=== PATIENT | female | born 1995 | race Caucasian/White ===

== ENCOUNTER 2017-06-06 08:58 | Outpatient (CLI) | payer OTHER | END 2017-06-06 09:15 | disposition home or self-care (01) | LOC: LAB 08:58 | DX: E64.9 Sequelae of unspecified nutritional deficiency (principal); E03.9 Hypothyroidism, unspecified; E16.2 Hypoglycemia, unspecified; N39.0 Urinary tract infection, site not specified; E78.2 Mixed hyperlipidemia; N91.1 Secondary amenorrhea; E55.9 Vitamin D deficiency, unspecified; E28.2 Polycystic ovarian syndrome; L68.8 Other hypertrichosis ==

== ENCOUNTER 2018-10-31 06:08 | Outpatient (CLI) | payer OTHER ==
[2018-11-04] MEDS ORDERED: ZITHROMAX TRI-500 MG PO (22:58)
[2018-11-04] MEDS ORDERED: KETO10TA2 PO (22:58)
== END 2018-10-31 06:19 | disposition home or self-care (01) ==
LOC: LAB 06:08
DX: Z11.3 Encounter for screening for infections with a predominantly sexual mode of transmission (principal)

== ENCOUNTER → 2018-11-04 | Emergency (ER) | payer OTHER ==
[~2018-11-04] VITALS: Ht 157.5 cm; Wt 104.3 kg
[~2018-11-04] MED LIST: KETO10TA2 PO; ZITHROMAX TRI-500 MG PO
== END | disposition home or self-care (01) ==
LOC: ER 18:59
DX: J06.9 Acute upper respiratory infection, unspecified (principal)

== ENCOUNTER 2019-06-01 08:43 | Inpatient (IN) | payer OTHER ==
[~2019-06-01] VITALS: Ht 30.5 cm; Wt 5.0 kg
[2019-06-02] MEDS ORDERED: PERCOCET 5-3251 EACH PO (15:31)
== END 2019-06-02 17:07 | disposition home or self-care (01) | DRG 343 ==
LOC: ER 08:43 → SURH 13:12
PROVIDERS: ADMIT Surgery
PROC: BW21ZZZ Computerized Tomography (CT Scan) of Abdomen and Pelvis (ICD-10-PCS; 2019-06-01)
PROC: BU4CZZZ Ultrasonography of Uterus and Ovaries (ICD-10-PCS; 2019-06-01)
PROC: 0DTJ4ZZ Resection of Appendix, Percutaneous Endoscopic Approach (ICD-10-PCS; principal; 2019-06-01 13:00)
DX: K35.890 Other acute appendicitis without perforation or gangrene (principal)

== ENCOUNTER → 2019-10-09 06:14 | Outpatient (CLI) | payer OTHER ==
[~2019-10-09 06:14] MED LIST changes: +PERCOCET 5-3251 EACH PO
== END | disposition home or self-care (01) ==
LOC: LAB 06:14
PROVIDERS: ATTEND Obstetrics & Gynecology
DX: E03.8 Other specified hypothyroidism (principal); I10 Essential (primary) hypertension; N30.00 Acute cystitis without hematuria; E11.9 Type 2 diabetes mellitus without complications; E28.2 Polycystic ovarian syndrome

== ENCOUNTER 2019-12-05 14:28 | Outpatient (CLI) | payer OTHER | END 2019-12-05 14:32 | disposition home or self-care (01) | LOC: LAB 14:28 | PROVIDERS: ATTEND Obstetrics & Gynecology | DX: Z32.02 Encounter for pregnancy test, result negative (principal) ==

== ENCOUNTER 2019-12-11 06:18 | Outpatient (CLI) | payer OTHER | END 2019-12-11 06:20 | disposition home or self-care (01) | LOC: LAB 06:18 | PROVIDERS: ATTEND Obstetrics & Gynecology | DX: N95.8 Other specified menopausal and perimenopausal disorders (principal); Z11.3 Encounter for screening for infections with a predominantly sexual mode of transmission ==

== ENCOUNTER 2020-04-22 13:42 | Outpatient (CLI) | payer OTHER | END 2020-04-22 13:44 | disposition home or self-care (01) | LOC: LAB 13:42 | PROVIDERS: ATTEND Obstetrics & Gynecology | DX: K73.8 Other chronic hepatitis, not elsewhere classified (principal); Z20.6 Contact with and (suspected) exposure to human immunodeficiency virus [HIV]; A60.00 Herpesviral infection of urogenital system, unspecified; R07.1 Chest pain on breathing; Z03.818 Encounter for observation for suspected exposure to other biological agents ruled out; A63.8 Other specified predominantly sexually transmitted diseases; D64.89 Other specified anemias ==

== ENCOUNTER 2022-04-24 07:36 | Emergency (ER) | payer OTHER ==
[~2022-04-24] VITALS: Ht 160 cm; Wt 81.6 kg
== END 2022-04-24 13:42 | disposition home or self-care (01) ==
LOC: ER 07:36
DX: O20.9 Hemorrhage in early pregnancy, unspecified (principal); Z3A.09 9 weeks gestation of pregnancy; Z91.040 Latex allergy status; Z91.041 Radiographic dye allergy status

== ENCOUNTER 2023-05-31 01:43 | Emergency (ER) | payer OTHER ==
[~2023-05-31] VITALS: Ht 154.9 cm; Wt 81.6 kg
[2023-05-31] MEDS ORDERED: PRENA1 TRUE CO1 EACH (01:49)
[2023-05-31] MEDS ORDERED: PROMETRIUM200 MG (01:49)
[2023-05-31 03:03] LABS: URINE APPEARANCE Cloudy; URINE BILIRRUBIN Negative (NEGATIVE); URINE BLOOD Large; URINE COLOR Orange; URINE GLUCOSE Negative (NEGATIVE); URINE LEUKOCYTE Trace; URINE NITRATE Negative; URINE PROTEIN 30 (NEGATIVE)
[2023-05-31 03:05] LABS: HEMATOCRIT 39.8 % (36.0-45.00); HEMOGLOBIN 13.2 g/dL (12.0-15.00); MEAN CELL VOLUME 86.8 fL (80.00-100.00); MEAN CORPUSCULAR HEMOGLOBIN 28.7 pg (27.00-32.0); MEAN CORPUSCULAR HGB CONC 33.1 g/dl (32.0-36.0); PLATELET COUNT 322 K/uL (150-450); RED BLOOD COUNT 4.59 M/uL (4.00-6.00); RED CELL DISTRIBUTION WIDTH 13.5 % (11.5-14.5)
[2023-05-31 03:07] LABS: URINE BACTERIA 614.8 uL (0.0-1933); URINE EPITHELIAL CELLS 23.4 uL (0.0-38.8); URINE WBC 6.9 uL (0.0-23.2)
[2023-05-31 03:30] LABS: INR 1.01; PARTIAL THROMBOPLASTIN TIME 29.6 SECONDS (22.0-34.0); PROTHROMBIN TIME 10.6 SECONDS (9.0-11.5)
[2023-05-31 03:49] LABS: CALCIUM 9.2 mg/dL (8.5-10.1); CREATININE SERUM 0.6 mg/dL (0.55-1.02); GFR 118.19; POTASSIUM 3.91 mEq/L (3.5-5.1)
== END 2023-05-31 06:50 ==
LOC: ER 01:43
PROVIDERS: General Practice
DX: O20.8 Other hemorrhage in early pregnancy (principal); Z3A.01 Less than 8 weeks gestation of pregnancy; Z88.1 Allergy status to other antibiotic agents; Z91.040 Latex allergy status; Z91.041 Radiographic dye allergy status

== ENCOUNTER 2023-09-04 14:08 | Outpatient (CLI) | payer OTHER ==
[~2023-09-04 14:08] MED LIST changes: +PRENA1 TRUE CO1 EACH; +PROMETRIUM200 MG
[2023-09-04] MEDS ORDERED: CLARITIN10 M1 PO (23:19)
[2023-09-04] MEDS ORDERED: COLACE100 MG PO (23:19)
== END 2023-09-04 14:09 | disposition home or self-care (01) ==
LOC: PRENATAL 14:08
PROVIDERS: ATTEND Obstetrics & Gynecology Maternal & Fetal Medicine
DX: O35.9XX0 Maternal care for (suspected) fetal abnormality and damage, unspecified, not applicable or unspecified (principal); O35.3XX0 Maternal care for (suspected) damage to fetus from viral disease in mother, not applicable or unspecified; O44.02 Complete placenta previa NOS or without hemorrhage, second trimester; O26.872 Cervical shortening, second trimester; Z3A.20 20 weeks gestation of pregnancy

== ENCOUNTER 2023-09-04 18:05 | Inpatient (IN) | payer OTHER ==
[~2023-09-04] VITALS: Ht 154.9 cm; Wt 89.8 kg
[2023-09-04 18:46] LABS: URINE APPEARANCE Clear; URINE BILIRRUBIN Negative (NEGATIVE); URINE BLOOD Negative; URINE COLOR Yellow; URINE GLUCOSE Negative (NEGATIVE); URINE LEUKOCYTE Negative; URINE NITRATE Negative; URINE PROTEIN Negative (NEGATIVE); URINE UROBILINOGEN 0.2 E.U./dl
[2023-09-04 18:47] LABS: HEMATOCRIT 35.2 % (36.0-45.00); HEMOGLOBIN 11.9 g/dL (12.0-15.00); MEAN CELL VOLUME 84.6 fL (80.00-100.00); MEAN CORPUSCULAR HEMOGLOBIN 28.6 pg (27.00-32.0); MEAN CORPUSCULAR HGB CONC 33.8 g/dl (32.0-36.0); PLATELET COUNT 306 K/uL (150-450); RED BLOOD COUNT 4.15 M/uL (4.00-6.00); RED CELL DISTRIBUTION WIDTH 13.4 % (11.5-14.5); URINE BACTERIA 11.3 uL (0.0-1933); URINE EPITHELIAL CELLS 6.9 uL (0.0-38.8); URINE RBC 11.9 uL (0.0-20.8); URINE WBC 6.1 uL (0.0-23.2)
[2023-09-04 19:14] LABS: ALBUMIN 2.9 gm/dL (3.4-5.0); BILIRUBIN TOTAL 0.28 mg/dL (0.3-1.2); CALCIUM 8.7 mg/dL (8.5-10.1); CREATININE SERUM 0.43 mg/dL (0.55-1.02); GFR 172.41; GLOBULINA 3.5 G/DL (2.4-3.5); POTASSIUM 3.62 mEq/L (3.5-5.1); TOTAL PROTEIN 6.4 gm/dL (6.4-8.2)
[2023-09-04 19:48] LABS: INR 0.94; PARTIAL THROMBOPLASTIN TIME 27.1 SECONDS (22.0-34.0); PROTHROMBIN TIME 9.9 SECONDS (9.0-11.5)
[2023-09-04] MEDS ORDERED: RINGERS SOLUTION,LACTATED 1,000 ML IV SCH (20:00)
[2023-09-04] MEDS ORDERED: CLARITIN10 M1 PO (23:19)
[2023-09-04] MEDS ORDERED: COLACE100 MG PO (23:19)
[2023-09-05] MEDS ORDERED: CHLORHEXIDINE GLUCONATE 120 ML BOTTLE TOP ONE (13:13)
[2023-09-05] MEDS ORDERED: INDOMETHACIN 25 MG CAPSULE PO PRN (16:45)
[2023-09-05] MEDS ORDERED: MORPHINE SULFATE 4 MG/ML CARTRIDGE IV PRN (16:45)
[2023-09-05] MEDS ORDERED: CEFAZOLIN SODIUM 1,000 MG VIAL IV SCH (17:00)
[2023-09-05] MEDS ORDERED: CEFAZOLIN SODIUM 1,000 MG VIAL ONE (17:49)
== END 2023-09-06 11:38 | disposition home or self-care (01) | DRG 819 ==
LOC: LDR 18:05 → OB/GYN 09-05 14:54
PROVIDERS: ADMIT Obstetrics & Gynecology; ATTEND Obstetrics & Gynecology
PROC: 4A1HXCZ Monitoring of Products of Conception, Cardiac Rate, External Approach (ICD-10-PCS; 2023-09-04)
PROC: 0UVC7ZZ Restriction of Cervix, Via Natural or Artificial Opening (ICD-10-PCS; principal; 2023-09-05 13:00)
DX: O26.872 Cervical shortening, second trimester (principal); Z3A.20 20 weeks gestation of pregnancy; Z20.822 Contact with and (suspected) exposure to COVID-19

== ENCOUNTER 2023-09-24 13:55 | Outpatient (CLI) | payer OTHER ==
[~2023-09-24 13:55] MED LIST changes: +CLARITIN10 M1 PO; +COLACE100 MG PO
== END 2023-09-24 13:56 | disposition home or self-care (01) ==
LOC: PRENATAL 13:55
PROVIDERS: ATTEND Obstetrics & Gynecology Maternal & Fetal Medicine
DX: O26.842 Uterine size-date discrepancy, second trimester (principal); O26.872 Cervical shortening, second trimester; Z3A.22 22 weeks gestation of pregnancy

== ENCOUNTER → 2023-10-26 10:17 | Outpatient (CLI) | payer OTHER | END | disposition home or self-care (01) | LOC: PRENATAL 10:17 | PROVIDERS: ATTEND Obstetrics & Gynecology Maternal & Fetal Medicine | DX: O26.849 Uterine size-date discrepancy, unspecified trimester (principal); O26.879 Cervical shortening, unspecified trimester; Z3A.27 27 weeks gestation of pregnancy ==

== ENCOUNTER → 2023-12-07 13:37 | Outpatient (CLI) | payer OTHER | END | disposition home or self-care (01) | LOC: PRENATAL 13:37 | PROVIDERS: ATTEND Obstetrics & Gynecology Maternal & Fetal Medicine | DX: O26.849 Uterine size-date discrepancy, unspecified trimester (principal); O36.8199 Decreased fetal movements, unspecified trimester, other fetus; O26.879 Cervical shortening, unspecified trimester; Z3A.32 32 weeks gestation of pregnancy ==

== ENCOUNTER 2023-12-17 11:49 | Outpatient (CLI) | payer OTHER ==
[~2023-12-17] VITALS: Ht 154.9 cm; Wt 101.2 kg
[2023-12-17 10:12] VITALS: BP 126/85
[2023-12-17 11:15] LABS: HEMATOCRIT 34.1 % (36.0-45.00); HEMOGLOBIN 11.3 g/dL (12.0-15.00); MEAN CELL VOLUME 78.8 fL (80.00-100.00); MEAN CORPUSCULAR HEMOGLOBIN 26.1 pg (27.00-32.0); MEAN CORPUSCULAR HGB CONC 33.2 g/dl (32.0-36.0); PLATELET COUNT 383 K/uL (150-450); RED BLOOD COUNT 4.33 M/uL (4.00-6.00); RED CELL DISTRIBUTION WIDTH 13.8 % (11.5-14.5)
[2023-12-17 11:30] VITALS: BP 112/75
[2023-12-17 11:31] LABS: INR 0.94; PARTIAL THROMBOPLASTIN TIME 25.6 SECONDS (22.0-34.0); PROTHROMBIN TIME 10.3 SECONDS (9.0-11.5)
[~2023-12-17 11:49] MED LIST changes: +RINGERS SOLUTION,LACTATED 1,000 ML IV SCH
[2023-12-17 12:16] LABS: ALBUMIN 2.8 gm/dL (3.4-5.0); BILIRUBIN TOTAL 0.25 mg/dL (0.3-1.2); CALCIUM 9.3 mg/dL (8.5-10.1); CREATININE SERUM 0.5 mg/dL (0.55-1.02); GFR 144.87; POTASSIUM 4.24 mEq/L (3.5-5.1); TOTAL PROTEIN 6.8 gm/dL (6.4-8.2); URIC ACID 2.6 mg/dL (2.5-7.5)
[2023-12-17 15:28] VITALS: BP 123/82
[2023-12-17 15:52] VITALS: BP 119/71
[2023-12-17 20:00] VITALS: BP 122/78
[2023-12-17] MEDS ORDERED: PATIENTS OWN MEDICATION (MEDICAMENTO EN PISO) VAG SCH (21:00)
[2023-12-17 23:30] VITALS: BP 105/69
[2023-12-18 03:00] VITALS: BP 106/69
[2023-12-18 06:18] VITALS: BP 107/66; O2SAT 97
[2023-12-18 12:22] VITALS: BP 120/83
[2023-12-18 12:47] LABS: CREATININE URINE 44.3 MG/DL; URINE PROT QUANT 24HR 6.9 MG/DL
[2023-12-18 12:50] LABS: CREATININE SERUM 0.5 mg/dL (0.6-1.0)
[2023-12-18 15:00] VITALS: BP 103/70
== END 2023-12-18 15:50 | disposition home or self-care (01) ==
LOC: OBS/DEL 11:49
PROVIDERS: ATTEND Obstetrics & Gynecology
DX: O26.893 Other specified pregnancy related conditions, third trimester (principal); O26.849 Uterine size-date discrepancy, unspecified trimester; O36.8199 Decreased fetal movements, unspecified trimester, other fetus; O60.00 Preterm labor without delivery, unspecified trimester; Z3A.33 33 weeks gestation of pregnancy

== ENCOUNTER 2023-12-24 11:56 | Inpatient (IN) | payer OTHER ==
[~2023-12-24] VITALS: Ht 154.9 cm; Wt 102.1 kg
[~2023-12-24 11:56] MED LIST changes: -RINGERS SOLUTION,LACTATED 1,000 ML IV SCH
[2023-12-24 12:59] LABS: HEMATOCRIT 33.7 % (36.0-45.00); MEAN CELL VOLUME 79.6 fL (80.00-100.00); MEAN CORPUSCULAR HEMOGLOBIN 25.9 pg (27.00-32.0); MEAN CORPUSCULAR HGB CONC 32.5 g/dl (32.0-36.0); PLATELET COUNT 412 K/uL (150-450); RED BLOOD COUNT 4.24 M/uL (4.00-6.00); RED CELL DISTRIBUTION WIDTH 13.4 % (11.5-14.5)
[2023-12-24 13:01] LABS: URINE BACTERIA 298.5 uL (0.0-1933); URINE EPITHELIAL CELLS 17.1 uL (0.0-38.8); URINE RBC 8.2 uL (0.0-20.8); URINE WBC 25.3 uL (0.0-23.2)
[2023-12-24 13:17] LABS: URINE APPEARANCE CLEAR; URINE BILIRRUBIN SMALL (NEGATIVE); URINE BLOOD NEGATIVE; URINE COLOR YELLOW; URINE GLUCOSE 100 MG/DL (NEGATIVE); URINE KETONE TRACE (NEGATIVE); URINE LEUKOCYTE NEGATIVE; URINE NITRATE NEGATIVE; URINE PROTEIN NEGATIVE (NEGATIVE); URINE UROBILINOGEN 0.2 E.U./dl
[2023-12-24 13:18] LABS: INR < 0.93; PARTIAL THROMBOPLASTIN TIME 24.5 SECONDS (22.0-34.0); PROTHROMBIN TIME 10.2 SECONDS (9.0-11.5)
[2023-12-24 14:14] LABS: ALBUMIN 2.7 gm/dL (3.4-5.0); BILIRUBIN TOTAL 0.29 mg/dL (0.3-1.2); CREATININE SERUM 0.62 mg/dL (0.55-1.02); GFR 113.02; GLOBULINA 4.1 G/DL (2.4-3.5); POTASSIUM 3.91 mEq/L (3.5-5.1); TOTAL PROTEIN 6.8 gm/dL (6.4-8.2)
[2024-01-01 14:09] VITALS: BP 122/71
[2024-01-01 16:11] VITALS: BP 99/54
[2024-01-01 18:17] VITALS: BP 133/64
[2024-01-01 23:34] VITALS: BP 103/62
[2024-01-01 23:45] VITALS: BP 118/66
[2024-01-02] VITALS: BP 110/68
[2024-01-02 00:15] VITALS: BP 114/59
[2024-01-02] MEDS ORDERED: IBUprofen 600 MG TABLET PO PRN (00:15)
[2024-01-02] MEDS ORDERED: CHLORHEXIDINE GLUCONATE 120 ML BOTTLE TOP ONE (01:00)
[2024-01-02] MEDS ORDERED: OXYTOCIN 1,000 ML IV SCH (01:00)
[2024-01-02 06:00] VITALS: BP 104/69
[2024-01-02 06:47] LABS: HEMATOCRIT 24.1 % (36.0-45.00); MEAN CELL VOLUME 77.8 fL (80.00-100.00); MEAN CORPUSCULAR HGB CONC 33.4 g/dl (32.0-36.0); PLATELET COUNT 308 K/uL (150-450); RED CELL DISTRIBUTION WIDTH 13.7 % (11.5-14.5)
[2024-01-02 06:48] LABS: HEMOGLOBIN 8.1 g/dL (12.0-15.00); MEAN CORPUSCULAR HEMOGLOBIN 26.1 pg (27.00-32.0)
[2024-01-02 08:48] VITALS: BP 109/73
[2024-01-02] MEDS ORDERED: PNV,CALCIUM 72/IRON/FOLIC ACID 1 TAB TABLET PO SCH (09:00)
[2024-01-02] MEDS ORDERED: BENZOCAINE/MENTHOL 90 ML BOTTLE TOP PRN (13:00)
[2024-01-02 15:00] VITALS: BP 107/70
[2024-01-03 03:02] VITALS: BP 105/69
[2024-01-03 08:44] VITALS: BP 114/64
[2024-01-03] MEDS ORDERED: IRON/V.C/V.B12/FOLIC A/VIT. E 1 CAPL CAPLET PO SCH (09:00)
[2024-01-03 16:49] VITALS: BP 115/76
[2024-01-03] MEDS ORDERED: DOCUSATE SODIUM 100MG CAP PO SCH (21:00)
[2024-01-04 01:39] VITALS: BP 118/77
[2024-01-04 09:36] VITALS: BP 121/84
== END 2024-01-04 18:34 | disposition home or self-care (01) | DRG 807 ==
LOC: OB/GYN 12-31 11:11 → LDR 01-01 13:36 → OB/GYN 01-01 13:36 → LDR 01-01 13:59 → OB/GYN 01-02 04:23
PROVIDERS: Obstetrics & Gynecology; ADMIT Obstetrics & Gynecology; ATTEND Obstetrics & Gynecology
PROC: 10E0XZZ Delivery of Products of Conception, External Approach (ICD-10-PCS; principal; 2024-01-01)
PROC: 0UQG7ZZ Repair Vagina, Via Natural or Artificial Opening (ICD-10-PCS; 2024-01-01)
PROC: 0UQMXZZ Repair Vulva, External Approach (ICD-10-PCS; 2024-01-01)
PROC: 4A1HXCZ Monitoring of Products of Conception, Cardiac Rate, External Approach (ICD-10-PCS; 2024-01-01)
DX: O70.0 First degree perineal laceration during delivery (principal); Z37.0 Single live birth; Z3A.37 37 weeks gestation of pregnancy; Z20.822 Contact with and (suspected) exposure to COVID-19